=== PATIENT | female | born 1980 | race Two or more races ===

== ENCOUNTER 2018-06-02 22:09 | Emergency (ER) | payer BC, OTHER ==
[~2018-06-02] VITALS: Ht 172.7 cm; Wt 115.7 kg
--- NOTE | 2018-06-02 22:22 | NUR ---
PT PRESENTED TO THE ER WITH A C/O VB TODAY. PT STATED THAT SHE IS 1 MONTHS AND HAS BEEN SPOTTING SINCE SATURDAY. PT STATED THAT THIS IS HER FIRST AND HER LMP WAS 04/06/18. PT IS IN A GOWN AND AWAITING US.
--- NOTE | 2018-06-02 22:22 | NUR ---
URINE SAMPLE OBTAINED.
--- NOTE | 2018-06-02 22:39 | NUR ---
Feli GARDNER, AGACNP-BC IS AT THE BEDSIDE.
--- NOTE | 2018-06-02 22:49 | NUR ---
FISH GRADER IS AT THE BEDSIDE FOR BLOOD DRAW.
--- NOTE | 2018-06-02 22:50 | NUR ---
PT'S SISTER ARRIVED AND IS AT THE BEDSIDE.
[2018-06-02 22:55] LABS: BASOPHILS # (AUTO) 0.1 /CMM (0.0-0.2); BASOPHILS % (AUTO) 0.6 % (0.0-2.0); EOSINOPHILS % (AUTO) 1.4 % (0.0-6.0); HEMATOCRIT 39 % (33-45); HEMOGLOBIN 12.8 g/dL (11.5-14.8); LYMPHOCYTES # (AUTO) 1.8 /CMM (0.8-4.8); LYMPHOCYTES % (AUTO) 15.2 % (20.0-44.0); MEAN CORPUSCULAR HGB CONC 33 g/dl (31.0-36.0); MEAN CORPUSCULAR VOLUME 88 fL (82-100); MONOCYTES # (AUTO) 0.7 /CMM (0.1-1.30); MONOCYTES % (AUTO) 6.1 % (2.0-12.0); NEUTROPHILS # (AUTO) 8.9 /CMM (1.8-8.9); NEUTROPHILS % (AUTO) 76.7 % (43.0-81.0); PLATELET COUNT (AUTO) 260 /CMM (150-450); RED BLOOD CELL COUNT(AUTO) 4.38 MIL/uL (4.0-5.2); WHITE BLOOD COUNT (AUTO) 11.7 K/uL (4.3-11.0)
[2018-06-02 22:56] LABS: APPEARANCE,URINE Clear (CLEAR); BILIRUBIN,URINE Negative (NEGATIVE); BLOOD, URINE Large Ery/uL (NEGATIVE); COLOR,URINE Brown (YELLOW); KETONES,URINE Trace (NEGATIVE); LEUKOCYTE ESTERASE ,URINE Trace (NEGATIVE); NITRITE, URINE Negative (NEGATIVE); PROTEIN,URINE Negative (NEGATIVE); UGLUCOSE Negative (NEGATIVE); UROBILINOGEN,URINE 0.2 EU/dL (0.2)
[2018-06-02 23:04] LABS: CALCIUM, SERUM 9.5 mg/dL (8.5-10.1); CREATININE 0.8 mg/dL (0.6-1.3); POTASSIUM 3.8 mmol/L (3.5-5.1)
--- NOTE | 2018-06-02 23:09 | NUR ---
LAB CALLED. PT IS NOT A CANDIDATE FOR [facility].
--- NOTE | 2018-06-02 23:36 | NUR ---
BRENT NIEVES, IS AT THE BEDSIDE. PT HAS TO USE THE BATHROOM. PT AMBULATED TO THE BATHROOM WITH A STEADY GAIT.
[2018-06-02 23:40] LABS: BACTERIA,URINE Few /HPF (None Seen); RBC,URINE 51-80 /HPF (0-2); SQUAMOUS EPITHELIAL CELL,UR Few /HPF (None Seen)
--- NOTE | 2018-06-02 23:40 | NUR ---
US IN PROGRESS AT THE BEDSIDE. Female sampler and test preparer accompanied female patient for US GRACIE KENNEDY DURING TRANSVAGINAL US.
--- NOTE | 2018-06-03 00:35 | NUR ---
Patient discharged to home in stable condition. Written and verbal after care instructions given. Patient verbalizes understanding of instruction. PT REC'D A COPY OF HER LABS AND WAS TOLD TO F/U WITH HER COMPUTER APPLICATIONS DEVELOPER. PT REC'D AN EXCUSE FROM WORK. PT AMBULATED OUT WITH A STEADY GAIT. PT'S SISTER IS DRIVING PT HOME. VSS. NAD NOTED. RESP EVEN AND UNLABORED.
[2018-06-03 00:46] VITALS: BP 134/69
== END 2018-06-03 00:35 | disposition home or self-care (01) ==
LOC: ER 22:11
DX: O20.0 Threatened abortion (principal); Z98.890 Other specified postprocedural states
CPT/HCPCS: 36415; 76856; 80048; 81001; 84702; 85025; 85730; 87086; 99284; A4606; 81000-TC

== ENCOUNTER 2021-04-11 01:19 | Emergency (ER) | payer OTHER ==
[~2021-04-11] VITALS: Ht 172.7 cm; Wt 113.4 kg
[2021-04-11 01:29] VITALS: BP 144/77
== END 2021-04-11 01:50 | disposition home or self-care (01) ==
LOC: ER 01:23
DX: Z20.822 Contact with and (suspected) exposure to COVID-19 (principal); Z98.890 Other specified postprocedural states
CPT/HCPCS: C9803; U0003

== ENCOUNTER 2024-03-02 20:04 | Emergency (ER) | payer OTHER ==
[~2024-03-02] VITALS: Ht 167.6 cm; Wt 77.1 kg
[2024-03-02 20:05] VITALS: BP 121/74; TEMP 98; O2SAT 99
[2024-03-02] MEDS: AZITHROMYCIN 250 MG TABLET PO ONE (20:27)
== END 2024-03-02 22:18 | disposition home or self-care (01) ==
LOC: ER 20:08
DX: Z20.811 Contact with and (suspected) exposure to meningococcus (principal)

== ENCOUNTER 2024-10-13 22:06 | Emergency (ER) | payer OTHER ==
[~2024-10-13] VITALS: Ht 167.6 cm; Wt 77.1 kg
[2024-10-13] MEDS: CIPROFLOXACIN HCL 250 MG TABLET PO ONE (01:35)
[2024-10-13 22:11] VITALS: BP 119/60; TEMP 98.5
[2024-10-13 22:20] VITALS: O2SAT 98
[2024-10-14] MEDS: AZITHROMYCIN 250 MG TABLET PO ONE (01:30)
[2024-10-14] MEDS ORDERED: CIPROFLOXACIN HCL 500 MG TABLET ONE (01:41)
[2024-10-14] MEDS ORDERED: AZITHROMYCIN 250 MG TABLET ONE (01:43)
== END 2024-10-14 02:33 | disposition home or self-care (01) ==
LOC: ER 22:06
DX: Z13.89 Encounter for screening for other disorder (principal)